=== PATIENT | female | born 2000 | race Hispanic/Latino ===

== ENCOUNTER 2023-04-25 11:35 | Inpatient (IN) | payer SELFPAY ==
[2023-04-25] VITALS (52 sets, daily range): BP systolic 109–148; BP diastolic 59–89; PULSE 81–112; RESP 14–19; TEMP 37.1–38.8; O2SAT 94–100; BMI 35.3
[2023-04-25] MEDS: Lactated Ringers 1,000 ML 50 ML IV (12:25)
[2023-04-25 12:41] LABS: Absolute Lymphocyte Count 1.25 X10^3/uL (0.83-4.51); Basophil# 0.03 X10^3/uL; Basophil% 0.2 % (0-1); Eosinophil# 0.02 X10^3/uL; Eosinophils% 0.1 % (0-5); Hematocrit 34.4 % (37-47); Hemoglobin 10.8 g/dL (12.0-15.0); Lymphocyte # 1.25 X10^3/ul (0.83-4.51); Lymphocyte % 6.5 % (19-41); Mean Corp Hgb Conc 31.4 g/dL (32-36); Mean Corpuscular Hgb 27.6 pg (27.0-32.0); Mean Platelet Vol. 10.4 fl (6.2-12.0); Monocyte# 0.73 X10^3/uL; Monocyte% 3.8 % (0-10); NRBC Flagged by Analyzer 0 % (0-5); Neutrophil # 17.01 X10^3/uL (2.7-7.7); Neutrophil % 88.6 % (47-70); Platelet Count 276 K/mm3 (150-450); RBC Distribution Width CV 16.6 % (11.6-14.6); RBC Distribution Width SD 53.1 fl (35.1-43.9); Red Blood Count 3.91 M/mm3 (4.2-5.4); White Blood Count 19.2 K/mm3 (4.4-11.0)
[2023-04-25] MEDS: LACTATED RINGERS 500 ML 999 ML IV ×2 (13:00→20:26)
[2023-04-25 13:39] LABS: Syphilis Antibodies Non-reactive
[2023-04-25] MEDS: Penicillin G Pot 5,000,000 UNITS in 0.9% Normal Saline (100mL MB+) 100 ML 150 UNITS IV (13:57)
[2023-04-25] MEDS: fentaNYL-bupivacaine (epidural) 100 ML BAG EPIDURAL ×2 (14:09→18:27)
--- NOTE | 2023-04-25 15:18 | PCM.HP.OB ---
Documented by User: Benita Watkins CNM 05/23/23 16:55 HPI - General General Date of Admission: 04/25/23 HPI Narrative VENUS CARLIN, is a 22 F who presents [facility] Home Medications vits,calcium no.78-iron fumarate-folic acid 29 mg-1 mg tablet (Prenatabs FA) 1 tab PO DAILY 04/25/23 [History Last Taken 04/24/23] acetaminophen 500 mg tablet 1,000 mg (2 x 500 mg) PO Q6H 14 days #112 tabs 04/28/23 [Rx Last Taken Unknown] ferrous sulfate 325 mg (65 mg iron) tablet 325 mg PO 1200,1700 30 days #60 tabs 04/28/23 [Rx Last Taken Unknown] ibuprofen 600 mg tablet 600 mg PO Q6H 14 days #56 tabs 04/28/23 [Rx Last Taken Unknown] sennosides 8.6 mg-docusate sodium 50 mg tablet (Stool Softener-Stimulant Laxative) 1 - 2 tab PO DAILY #0 tabs 04/28/23 [Rx Last Taken Unknown] simethicone 80 mg chewable tablet 80 mg PO PCHS PRN Indigestion/stomach pain 7 days #14 tabs 04/28/23 [Rx Last Taken Unknown] Allergy/AdvReac Type Severity Reaction Status Date / Time No Known Allergies Allergy Verified 04/25/23 12:50 Surgical History (Updated 04/25/23 @ 12:57 by Carolyn Hazel) H/O wisdom tooth extraction Social History Smoking Status: Never smoker History Elective abortions Hx Para 0 Spontaneous abortions Hx # Term Pregnancies Ectopic pregnancies Hx # Pregnancies Multiple births # of living children Vital Signs Vital Signs Vital Signs: 04/25/23 11:49 04/25/23 11:49 04/25/23 11:50 Temperature Temperature Source Pulse Rate 81 89 Blood Pressure 134/80 H BP Systolic 134 BP Diastolic 80 Pulse Ox 04/25/23 11:50 04/25/23 11:49 04/25/23 13:03 Temperature 99.3 F H Temperature Source Pulse Rate Blood Pressure 125/61 H BP Systolic 125 BP Diastolic 61 Pulse Ox 98 04/25/23 13:03 04/25/23 13:04 04/25/23 13:04 Temperature Temperature Source Pulse Rate 86 84 Blood Pressure BP Systolic BP Diastolic Pulse Ox 99 04/25/23 13:02 04/25/23 13:02 04/25/23 13:58 Temperature 99.1 F Temperature Source Temporal Pulse Rate 106 H Blood Pressure BP Systolic BP Diastolic Pulse Ox 04/25/23 13:58 04/25/23 14:00 04/25/23 14:00 Temperature Temperature Source Pulse Rate 112 H Blood Pressure 148/89 H BP Systolic 148 BP Diastolic 89 Pulse Ox 99 04/25/23 14:03 04/25/23 14:03 04/25/23 14:05 Temperature Temperature Source Pulse Rate 102 H Blood Pressure 138/82 H BP Systolic 138 BP Diastolic 82 Pulse Ox 99 04/25/23 14:05 04/25/23 14:08 04/25/23 14:08 Temperature Temperature Source Pulse Rate 102 H 105 H Blood Pressure BP Systolic BP Diastolic Pulse Ox 99 04/25/23 14:10 04/25/23 14:10 04/25/23 14:13 Temperature Temperature Source Pulse Rate 105 H 110 H Blood Pressure 126/68 H BP Systolic 126 BP Diastolic 68 Pulse Ox 04/25/23 14:13 04/25/23 14:15 04/25/23 14:15 Temperature Temperature Source Pulse Rate 105 H Blood Pressure 128/74 H BP Systolic 128 BP Diastolic 74 Pulse Ox 98 04/25/23 14:18 04/25/23 14:18 04/25/23 14:21 Temperature Temperature Source Pulse Rate 102 H Blood Pressure 136/82 H BP Systolic 136 BP Diastolic 82 Pulse Ox 99 04/25/23 14:21 04/25/23 14:23 04/25/23 14:23 Temperature Temperature Source Pulse Rate 100 101 H Blood Pressure BP Systolic BP Diastolic Pulse Ox 99 04/25/23 14:26 04/25/23 14:26 04/25/23 14:28 Temperature Temperature Source Pulse Rate 94 95 Blood Pressure 139/85 H BP Systolic 139 BP Diastolic 85 Pulse Ox 04/25/23 14:28 04/25/23 14:30 04/25/23 14:30 Temperature Temperature Source Pulse Rate 96 Blood Pressure 133/80 H BP Systolic 133 BP Diastolic 80 Pulse Ox 98 04/25/23 14:33 04/25/23 14:33 04/25/23 14:35 Temperature Temperature Source Pulse Rate 99 Blood Pressure 137/77 H BP Systolic 137 BP Diastolic 77 Pulse Ox 97 04/25/23 14:35 04/25/23 14:38 04/25/23 14:38 Temperature Temperature Source Pulse Rate 100 99 Blood Pressure BP Systolic BP Diastolic Pulse Ox 98 04/25/23 14:40 04/25/23 14:40 04/25/23 14:43 Temperature Temperature Source Pulse Rate 112 H 99 Blood Pressure 137/78 H BP Systolic 137 BP Diastolic 78 Pulse Ox 04/25/23 14:43 04/25/23 14:46 04/25/23 14:46 Temperature Temperature Source Pulse Rate 96 Blood Pressure 136/83 H BP Systolic 136 BP Diastolic 83 Pulse Ox 99 04/25/23 14:48 04/25/23 14:48 04/25/23 14:51 Temperature Temperature Source Pulse Rate 100 Blood Pressure 132/77 H BP Systolic 132 BP Diastolic 77 Pulse Ox 99 04/25/23 14:51 04/25/23 14:53 04/25/23 14:53 Temperature Temperature Source Pulse Rate 95 101 H Blood Pressure BP Systolic BP Diastolic Pulse Ox 98 04/25/23 14:56 04/25/23 14:56 04/25/23 14:58 Temperature Temperature Source Pulse Rate 102 H 99 Blood Pressure 139/80 H BP Systolic 139 BP Diastolic 80 Pulse Ox 04/25/23 14:58 04/25/23 15:01 04/25/23 15:01 Temperature Temperature Source Pulse Rate 99 Blood Pressure 133/77 H BP Systolic 133 BP Diastolic 77 Pulse Ox 99 04/25/23 15:03 04/25/23 15:03 Temperature Temperature Source Pulse Rate 99 Blood Pressure BP Systolic BP Diastolic Pulse Ox 98 Weight Weight: 169 lb Body Mass Index (BMI) 35.3 Labs Labs Labs: Blood Type O POSITIVE Antibody Screen NEGATIVE Hct 27.1 % (37-47) L Hgb 8.5 g/dL (12.0-15.0) L Syphilis Total Ab Non-reactive Assessment & Plan (1) 39 weeks gestation of : COMMENT: @ 39&2 Documented by User: Dr. Mel Guerra MD 04/27/23 17:40 HPI - General General Date of Admission: 04/25/23 HPI Narrative VENUS CARLIN, is a 22 F who presents with ctxs. Maternal Data Information Final CRAIG: 04/30/23 Gestational age: 39&2 PFSH PFSH Home Medications vits,calcium no.78-iron fumarate-folic acid 29 mg-1 mg tablet (Prenatabs FA) 1 tab PO DAILY 04/25/23 [History Last Taken 04/24/23] acetaminophen 500 mg tablet 1,000 mg (2 x 500 mg) PO Q6H 14 days #112 tabs 04/28/23 [Rx Last Taken Unknown] ferrous sulfate 325 mg (65 mg iron) tablet 325 mg PO 1200,1700 30 days #60 tabs 04/28/23 [Rx Last Taken Unknown] ibuprofen 600 mg tablet 600 mg PO Q6H 14 days #56 tabs 04/28/23 [Rx Last Taken Unknown] sennosides 8.6 mg-docusate sodium 50 mg tablet (Stool Softener-Stimulant Laxative) 1 - 2 tab PO DAILY #0 tabs 04/28/23 [Rx Last Taken Unknown] simethicone 80 mg chewable tablet 80 mg PO PCHS PRN Indigestion/stomach pain 7 days #14 tabs 04/28/23 [Rx Last Taken Unknown] Allergy/AdvReac Type Severity Reaction Status Date / Time No Known Allergies Allergy Verified 04/25/23 12:50 Surgical History (Updated 04/25/23 @ 12:57 by Carolyn Hazel) H/O wisdom tooth extraction Social History Smoking Status: Never smoker History Elective abortions Hx Para 0 Spontaneous abortions Hx # Term Pregnancies Ectopic pregnancies Hx # Pregnancies Multiple births # of living children Physical Exam Const alert and oriented x3 Labs Labs Labs: Blood Type O POSITIVE Antibody Screen NEGATIVE Hct 27.1 % (37-47) L Hgb 8.5 g/dL (12.0-15.0) L Syphilis Total Ab Non-reactive see [facility] H&P Assessment & Plan (1) 39 weeks gestation of : COMMENT: @ 39&2 PLAN: Plan Admit ot L&D Routine care
--- NOTE | 2023-04-25 17:13 | NURSING ---
Pt. plans to breastfeed infant after delivery. IBCLC gave labor RN Alexander Mauritian resources on Hunger Cues, Latch/Positioning, Signs of a Good Feeding, and nauruan Feeding Log for patient to review before delivery.
[2023-04-25] MEDS: Lactated Ringers 1,000 ML 200 ML IV (17:30)
[2023-04-25] MEDS: Penicillin G 3,000,000 Units 50 ML 100 UNITS IV (18:25)
[2023-04-25] MEDS: Acetaminophen 500 MG Tablet PO (20:25)
[2023-04-25] MEDS: Ampicillin 2 GM in 0.9% Normal Saline (100mL MB+) 100 ML IV (20:44)
[2023-04-25] MEDS: CHLORHEXIDINE GLUC 2% CLOTH 1 EACH TOWELETTE TOPICAL (20:50)
[2023-04-25] MEDS: Sodium Citrate/Citric Acid 30 ML UDC PO (21:01)
[2023-04-25] MEDS: Cefazolin 2 GM in 0.9% Normal Saline (100mL Bag) 100 ML IV (21:11)
--- NOTE | 2023-04-25 22:10 | EX.PCM.OBRPT ---
Maternal Data Information Final CRAIG: 04/30/23 Gestational age: 39&2 Details Operative Information Date of Procedure: 04/25/23 Pre-Operative Diagnosis: (1) Non reassuring heart tracing Post-Operative Diagnosis: Same Indications for : Nonreassuring Status Indications Narrative: The patient was have recurrent late and some prolonged decelerations. Decision was made to proceed with a primary . The patient was taken to the operating room where epidural anesthesia was dosed & found to be adequate. She was prepped and draped in the dorsal supine position with a leftward tilt. A Pfannenstiel skin incision was made approximately 2 cm above the symphysis pubis and carried through to the underlying fascia with the scalpel. The fascia was incised incised in the midline and extended laterally with the Paris scissors. The rectus muscles were in the midline and the peritoneum was entered carefully and bluntly. The peritoneal incision was stretched and the bladder blade was inserted. Vesicouterine peritoneum was tented up, incised & then bladder flap created gently. The uterine incision was made in a low transverse fashion with the scalpel and extended superiorly and inferiorly with blunt dissection. The 's head was brought to the incision in the flexed position. It then disengaged and the infant was then rotated to breech. The was delivered carefully via typical breech maneuvers. The 3VC cord was clamped and cut. The infant was handed off to the waiting hat renovator. The placenta was delivered with fundal massage and gentle traction in the standard fashion. The uterus was exteriorized and cleared of clots and debris. The uterine incision was closed with #1 Vicryl suture in a running locked fashion. Monocryl suture was used in an imbricating fashion. 2 additional figure of eight sutures were placed on the right side of the uterine incision to obtain further hemostasis. The incision was examined and was found to be hemostatic. The uterus was returned to the abdominal cavity. After irrigating Aysha was placed over the uterine incision as some areas were denuded (but hemostatic). The rectus muscle was examined and any bleeding was Bovie cauterized. The fascia was closed with PDS suture in a running standard fashion. The subcutaneous tissue was examining and any bleeding was Bovie cauterized. The subcutaneous tissue was reapproximated with interrupted sutures. The skin was closed in a subcuticular fashion by the SUMMER CAMP COUNSELOR while I was present in the labor & delivery unit. The remainder of the procedure was performed by me with assistance. All sponge, lap, and needle counts were correct. The patient was taken to her room for recovery in a stable condition. Classification: ARIANNA Procedure Type: low transverse plumbing inspector #1: Adonis Feng Type of Anesthesia: Epidural Antibiotic Given: Ancef 2 grams IV x1 and Zithromax 500 mg/5 mL X1 Drain: Chung to straight drain Estimated Blood Loss: 700ml Fluids Replaced: 1500ml Procedure Start Time: 21:29 Procedure Stop Time: 22:14 Findings Description of Procedure: Normal maternal uterus and adnexa Presentation: Positive for Vertex (then disengaged and delivered breech) Amniotic Membrane Rupture Type: Artificial Amniotic Fluid Description: Moderate meconium (at time of delivery) Placental Delivery Description: Expressed Placenta Disposition: [facility] Specimen(s) Sent to Pathology: none Cord Vessel Description: 3 Vessels Cord Entanglement: None A Gender: Female (Whitney) (1 minute): 7 (5 minute): 9 Delayed Cord Clamping: No Complications Complications: None
[2023-04-25] MEDS: Azithromycin 500 MG in Dextrose 5%-Water (250mL Bag) 250 ML 250 MG IV (22:15)
[2023-04-25] MEDS: Oxytocin 15 Units/NS 250ml 15 UNITS/250 ML IV.SOLN 83 UNITS IV (22:35)
[2023-04-26] VITALS (21 sets, daily range): BP systolic 96–130; BP diastolic 58–79; PULSE 93–108; RESP 15–126; TEMP 36.3–36.9; O2SAT 94–99
[2023-04-26] MEDS: Ketorolac 30 MG/ML Syringe IV ×4 (00:37→18:22)
[2023-04-26] MEDS: Lactated Ringers 1,000 ML 100 ML IV (01:36)
[2023-04-26] MEDS: Acetaminophen 500 MG Tablet 1000 MG PO ×4 (02:31→21:19)
--- NOTE | 2023-04-26 02:46 | NURSING ---
epidural catheter removed by this rn, blue tip intact
[2023-04-26 06:44] LABS: Hematocrit 27.1 % (37-47); Hemoglobin 8.5 g/dL (12.0-15.0); Mean Corp Hgb Conc 31.4 g/dL (32-36); Mean Corpuscular Hgb 27.6 pg (27.0-32.0); Platelet Count 215 K/mm3 (150-450); RBC Distribution Width CV 16.9 % (11.6-14.6); RBC Distribution Width SD 53.4 fl (35.1-43.9); Red Blood Count 3.08 M/mm3 (4.2-5.4); White Blood Count 20.9 K/mm3 (4.4-11.0)
--- NOTE | 2023-04-26 08:16 | PCM.PN.OB ---
Subjective Subjective Patient seen at bedside. FOB hourly sign language interpreter for visit. Patient has not been out of bed and still has carr catheter. Discussed ambulation today. Pain is controlled at this time. Denies headache, SOB, or CP. with support. Anticipate discharge home tomorrow. Objective Data Objective Data Vital Signs: Vital Signs Temp Pulse Resp BP Pulse Ox O2 Del Method 97.4 F L 93 126 H 115/72 95 Room Air 04/26/23 08:06 04/26/23 08:06 04/26/23 08:06 04/26/23 08:06 04/26/23 08:06 04/26/23 08:06 Oxygen Delivery Method Room Air Weight: 169 lb Body Mass Index (BMI) 35.3 Intake & Output: Intake and Output for Last 24 Hours 04/24/23 04/25/23 04/26/23 23:59 23:59 23:59 Intake Total 4085.00 / 4085.00 505 / 505 Output Total 900 / 900 800 / 800 Balance 3185.00 / 3185.00 -295 / -295 Lab / Micro Data 04/26/23 06:23 Labs: Laboratory Results - last 24 hr 04/25/23 12:25: WBC 19.2 H, RBC 3.91 L, Hgb 10.8 L, Hct 34.4 L, MCV 88.0, MCH 27.6, MCHC 31.4 L, RDW Std Deviation 53.1 H, RDW Coeff of Loren 16.6 H, Plt Count 276, MPV 10.4, Immature Gran % (Auto) 0.800, Neut % (Auto) 88.6 H, Lymph % (Auto) 6.5 L, [place] % (Auto) 3.8, Eos % (Auto) 0.1, Baso % (Auto) 0.2, Absolute Neuts (auto) 17.0 H, Absolute Lymphs (auto) 1.25, Nucleated RBC % 0, Syphilis Total Ab Non-reactive, Blood Type O POSITIVE, Antibody Screen NEGATIVE 04/26/23 06:23: WBC 20.9 H, RBC 3.08 L, Hgb 8.5 L, Hct 27.1 L, MCV 88.0, MCH 27.6, MCHC 31.4 L, RDW Std Deviation 53.4 H, RDW Coeff of Loren 16.9 H, Plt Count 215, MPV 10.0 ROS Eyes Eyes: Denies blurry vision, change in vision or spots in vision ENT HEENT: Denies dizziness or headache(s) Cardiovascular Cardiovascular: Denies abdominal pain, chest pain or dyspnea Respiratory/Chest Respiratory/Chest: Denies cough, dyspnea, shortness of breath at rest or shortness of breath with exertion Gastrointestinal Gastrointestinal: Denies abdominal pain, diarrhea or vomiting Genitourinary Genitourinary: Denies change in urinary stream, difficulty urinating or dysuria Musculoskeletal Musculoskeletal: Reports none Integumentary Integumentary: Denies rash Neurologic Neurologic: Denies dizziness, headache(s), memory loss or weakness Physical Exam Narrative Dressing is dry and intact Const alert and no apparent distress General Appearance: cooperative and comfortable Exam Limitations: no limitations HEENT normocephalic Eyes General Eye: normal appearance of both eyes Neck full ROM General: normal visual inspection Chest Chest: symmetrical chest wall rise Resp normal respiratory effort and normal air movement Effort and Inspection: symmetric chest movement Auscultation: clear to auscultation bilaterally Cardio regular rate and regular rhythm GI normal to inspection, nondistended, normoactive bowel sounds Back/Spine normal ROM Extremity full ROM and no calf tenderness General Extremity: normal exam except as noted Skin no rashes or lesions noted Neuro CN's II-XII intact bilaterally Psych mental status grossly normal Assessment & Plan (1) Single delivery by section: (2) Language barrier: (3) Care and examination of lactating mother: (4) Anemia due to blood loss: PLAN: Plan POD 1 Primary C/S Pain control HGB 8.5 down from 10.8- Start oral iron BID support Ambulate today
[2023-04-26] MEDS: Senna/Docusate Sodium 1 Tablet PO (10:30)
[2023-04-26] MEDS: Enoxaparin 40 MG/0.4 ML Syringe SC (10:31)
[2023-04-26] MEDS: Influenza Virus Vac Quad 23-24 60 MCG/0.5 ML SYRINGE IM (10:31)
[2023-04-26] MEDS: 0.9% Saline Lock 10 ML Syringe IV (12:43)
[2023-04-26] MEDS: Ferrous Sulfate 325 MG Tablet PO ×2 (12:48→17:50)
[2023-04-27] MEDS: Ibuprofen 600 MG Tablet PO ×4 (00:27→17:51)
[2023-04-27 01:50] VITALS: BP 127/71; PULSE 91; RESP 16; TEMP 36.6; O2SAT 97
[2023-04-27] MEDS: Acetaminophen 500 MG Tablet 1000 MG PO ×4 (01:54→21:05)
[2023-04-27 08:56] VITALS: BP 112/79; PULSE 85; RESP 16; TEMP 36.6; O2SAT 96
--- NOTE | 2023-04-27 09:30 | NURSING ---
Will [id number]
[2023-04-27] MEDS: Senna/Docusate Sodium 1 Tablet PO (10:24)
[2023-04-27] MEDS: Enoxaparin 40 MG/0.4 ML Syringe SC (10:24)
[2023-04-27] MEDS: Ferrous Sulfate 325 MG Tablet PO ×2 (12:23→17:52)
[2023-04-27 15:20] VITALS: BP 122/81; PULSE 92; RESP 16; TEMP 36.7; O2SAT 99
--- NOTE | 2023-04-27 17:36 | PCM.PN.OB ---
Subjective Subjective Denies complaints Objective Data Objective Data Vital Signs: Vital Signs Temp Pulse Resp BP Pulse Ox O2 Del Method 98.0 F 92 16 122/81 H 99 Room Air 04/27/23 15:20 04/27/23 15:20 04/27/23 15:20 04/27/23 15:20 04/27/23 15:20 04/27/23 15:20 Oxygen Delivery Method Room Air Weight: 169 lb Body Mass Index (BMI) 35.3 Intake & Output: Intake and Output for Last 24 Hours 04/25/23 04/26/23 04/27/23 23:59 23:59 23:59 Intake Total 4085.00 / 4085.00 1245 / 1245 Output Total 900 / 900 1900 / 1900 Balance 3185.00 / 3185.00 -655 / -655 Lab / Micro Data 04/26/23 06:23 Physical Exam Const alert, oriented x3 and no apparent distress HEENT normocephalic GI soft to palpation, non-tender and non-distended GI Narrative: fundus firm, mid & below umbilicus Incision - bandage c/d/i Extremity normal to inspection and no calf tenderness Assessment & Plan (1) Care and examination of lactating mother: (2) Anemia due to blood loss: (3) Single delivery by section: PLAN: Plan Routine PP care Plan for discharge tomorrow as working on feeding
[2023-04-27 20:40] VITALS: BP 130/75; PULSE 91; RESP 17; TEMP 36.5; O2SAT 98
[2023-04-28] MEDS: Ibuprofen 600 MG Tablet PO ×3 (00:39→12:20)
[2023-04-28 01:12] VITALS: BP 108/59; PULSE 80; RESP 17; TEMP 36.5; O2SAT 100
[2023-04-28] MEDS: Acetaminophen 500 MG Tablet 1000 MG PO ×2 (02:20→08:47)
[2023-04-28 08:00] VITALS: BP 117/69; PULSE 82; RESP 16; TEMP 36.7
[2023-04-28] MEDS: Etonogestrel 68 MG IMPLANT SC (08:15)
--- NOTE | 2023-04-28 08:21 | PCM.PROGNOTE ---
Subjective Subjective patient seen at bedside, doing well. Patient reports good pain control. lochia mild. Objective Data Objective Data Vital Signs: Vital Signs Temp Pulse Resp BP Pulse Ox O2 Del Method 97.7 F L 80 17 108/59 L 100 Room Air 04/28/23 01:12 04/28/23 01:12 04/28/23 01:12 04/28/23 01:12 04/28/23 01:12 04/28/23 01:12 Oxygen Delivery Method Room Air Weight: 76.657 kg Body Mass Index (BMI) 35.3 Intake & Output: Intake and Output for Last 24 Hours 04/26/23 04/27/23 04/28/23 23:59 23:59 23:59 Intake Total 1245 / 1245 Output Total 1900 / 1900 Balance -655 / -655 Lab / Micro Data 04/26/23 06:23 Physical Exam Const alert and oriented x3 General Appearance: cooperative HEENT normocephalic Neck General: normal visual inspection GI soft to palpation and non-distended GI Narrative: Fundus firm Extremity normal to inspection and no calf tenderness Skin no rashes or lesions noted Neuro oriented x3 and CN's II-XII intact bilaterally Psych mental status grossly normal Assessment & Plan Assessment/Plan (1) Anemia due to blood loss: (2) Care and examination of lactating mother: (3) Single delivery by section: (4) Language barrier: PLAN: Plan POD#3 , Doing well Routine care pain mgmt monitor VS ambulation nexplanon insertion today dc home
--- NOTE | 2023-04-28 08:22 | PCM.OPRPT ---
Report of Operation Date of Procedure: 04/28/23 Pre-Operative Diagnosis: contraceptive mgmt Post-Operative Diagnosis: same Surgery/Procedure Performed:: nexplanon insertion Description of Surgical Findings:: [employer] membership advisors on iPad used for consent Surgeon: Nusrat Burr Type of Anesthesia: Local Special Medications: 1% lidocaine Specimen's removed: none Description of Procedure: Consent was obtained. Patient left arm placed in a neutral position flexed at 90 degrees. Area cleansed with chlorhexidine. 5cc of 1% lidocaine injected. Nexplanon placed without difficulty. Patient was shown where the implant was placed. Steri-Strips were applied. gauze and pressure dressing were applied. Grafts/Implants Used: nexplanon Complications none
--- NOTE | 2023-04-28 08:25 | DS.PCM_ITS ---
Discharge Summary Date of Admission: 04/25/23 Date of Discharge: 04/28/23 Summary: Patient was admitted to [facility] on 04/25/2023 in labor. Patient had nonreassuring status with category 2 heart rate tracing remote from delivery underwent a primary section performed by Dr. Mel Guerra. She had an uncomplicated postoperative course and was discharged home on postoperative day #3 in stable condition. Patient had a Nexplanon implant placed prior to DC home for contraceptive management. Meaningful Use Info Meaningful Use Diagnoses (Choose all that apply): None applicable Discharge Plan Admission Admit Date/Time: 04/25/23 11:35 Attending Provider: Mel Guerra Primary Care Provider: Care Physician,Elle Primary Discharge Orders/Prescriptions Prescriptions: New sennosides-docusate sodium [Stool Softener-Stimulant Laxat] 8.6-50 mg Tablet 1 - 2 tab PO DAILY Qty: 0 0RF acetaminophen 500 mg Tablet 1,000 mg PO Q6H 14 Days Qty: 112 0RF ferrous sulfate 325 mg (65 mg iron) Tablet 325 mg PO 1200,1700 30 Days Qty: 60 0RF ibuprofen 600 mg Tablet 600 mg PO Q6H 14 Days Qty: 56 0RF simethicone 80 mg Tablet,Chewable 80 mg PO PCHS PRN (Reason: Indigestion/stomach pain) 7 Days Qty: 14 0RF Continued Prenatabs FA 29-1 mg tablet 1 tab PO DAILY Referrals / Follow Up: Care Physician,No Primary [Primary Care Provider] - Disposition Disposition (needs filled in before D/C Order can be placed): Home, Self Care
--- NOTE | 2023-04-28 08:31 | DCINST_ITS ---
Discharge Instructions Diet Discharge Diet: No restrictions Activity May resume sexual activity in: 6-8 weeks Lifting Restrictions: 25 Dressing / Incision Call your doctor if your incision/area has: Continuous Slow Oozing, Sudden Increased Bleeding, Increased Pain/ Swelling, Increased Redness, Foul Smelling Discharge and Swelling at the incision site Call your doctor if you observe: Fever of 101 or Higher, Inability to urinate, Using more than 1 pad per hour and Uncontrolled pain Additional Dressing/Incision Instructions:: remove dressing at 7 days post op- if it becomes saturated prior to that time you may remove it. Let soap and water run over incision sites and dab dry. keep incision clean and dry. Follow Up Care Please Follow Up With: Nusrat Burr MD When: 1-2 weeks post of incision check and again at 6 weeks post . [phone] Test Results: Test results from this visit will be discussed in further detail at your follow- up appointment, if applicable. Discharge Plan Admission Admit Date/Time: 04/25/23 11:35 Attending Provider: Mel Guerra Primary Care Provider: Care Physician,Elle Primary Discharge Orders/Prescriptions Prescriptions: New sennosides-docusate sodium [Stool Softener-Stimulant Laxat] 8.6-50 mg Tablet 1 - 2 tab PO DAILY Qty: 0 0RF acetaminophen 500 mg Tablet 1,000 mg PO Q6H 14 Days Qty: 112 0RF ferrous sulfate 325 mg (65 mg iron) Tablet 325 mg PO 1200,1700 30 Days Qty: 60 0RF ibuprofen 600 mg Tablet 600 mg PO Q6H 14 Days Qty: 56 0RF simethicone 80 mg Tablet,Chewable 80 mg PO PCHS PRN (Reason: Indigestion/stomach pain) 7 Days Qty: 14 0RF Continued Prenatabs FA 29-1 mg tablet 1 tab PO DAILY Referrals / Follow Up: Care Physician,No Primary [Primary Care Provider] - Disposition Disposition (needs filled in before D/C Order can be placed): Home, Self Care
[2023-04-28] MEDS: Senna/Docusate Sodium 1 Tablet PO (08:48)
[2023-04-28] MEDS: Enoxaparin 40 MG/0.4 ML Syringe SC (08:48)
--- NOTE | 2023-04-28 11:20 | CASEMGMT ---
Social Work Assessment Labor and Delivery Unit Patient Address: [address] [place] [id number] Phone number: [phone] Date of Referral: 04/27/23 Time of Referral:? 1935 Referred By: Mel Guerra Date of Intervention: 04/28/23?? Time of Intervention:? 944 Reason for Referral:? resources Sw completed chart review and acknowledges social work consult due to need for resources. Sw presented to bedside and using ipad cotton sampler (Aleisha ID# [id number]) introduced self to mother of baby (NABILA- Hortencia) and explained reason for sw involvement. Sw completed psychosocial assessment and provided MOB information regarding resources that she is eligible for. History obtained from: medical records, MOB Household composition: MOB states that currently residing in the home is herself, FOB and now baby. Patient's parent/guardian status:? ?MOB states that she and FOB were introduced to each other by mutual friends and have been together for one year. MOB denies any concerns of domestic violence or intimate partner violence. Medical History: ?NABILA is 22 year old female who is 1, para 0-now 1 after labor and delivery of baby. MOB received routine care during with [facility]. MOB delivered baby on 04/25/23 via after non reassuring heart tones. Baby girl, named Whitney, was born weighing 6lb 9oz and her apgars were 7 and 9 at one and five minutes of life, respectfully. Baby will be followed by Dr. Nina for pediatrics. Educational Status:? MOB states that both parents completed high school. 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 Supplies:?? MOB states that they have obtained a car seat, clothes, diapers and wipes but did not get a crib yet. Sw asked MOB what baby will sleep in tonight, and MOB stated that they will be stopping on their way home from the hospital to get a crib. Sw informed MOB that if it is easier for parents they can also get a pack-n-play or bassinet, a safe sleep is also one of those options. MOB expressed understanding. Childcare/Caregiver(s):? MOB stated that she does not require assistance with childcare because she does not work and is able to be the primary caregiver to baby. MOB stated if she needs help she does have supports in place. Transportation:?? VI drives and has a reliable vehicle. MOB stated that when she has to go to appointments FOB takes her. Programs/Agencies Involved: ???MOB denies linkage to any community resources. Sw educated MOB on need for baby to get connected to insurance, as well as herself. Sw asked MOB if it was ok for sw to make referral to [employer] who would be able to assist MOB getting connected to insurance. MOB stated that was ok. Sw also provided MOB information on local resources that are applicable- WIC, [employer], counseling, food pantries, etc. Children Services/Legal Issues:??No history of involvement, no issues or concerns warranting referral to be made at this time. ? Behavioral Health Issues: ??Mental Health History:??MOB denies mental health history for herself and FOB. ? Substance Use History: MOB denies substance use prior to and during . ?? Family History:???MOB denies family history of addiction and significant mental health history. ?? Drug Screens: ??No urine screens observed in chart review. Family/Social Stressors:? MOB denies stressors at this time. Support Systems: MOB states that VI is her biggest support person, along with her friend Vani. Depression/Shaken Baby/Safe Sleeping:? Sw educated MOB on signs and symptoms of baby blues and depression and anxiety. Sw provided MOB with literature she can review discussing appropriate coping skills to utilize if she would struggle. MOB expressed understanding. Sw educated MOB on shaken baby prevention and ABCs of safe sleep. MOB expressed understanding. ASSESSMENT:? MOB and baby admitted following labor and delivery of . MOB Swedish speaking and is not connected to community resources, and does not have insurance. MOB receptive to sw involvement and support and was receptive to getting connected to the resources that sw provided her with. MOB states that they have all necessary baby items except for a sleep space for baby, which MOB states [facility] is getting after MOB and baby are discharged today. MOB with no mental health history, and states that she has supports in place to help her. PLAN:? MOB and baby to be discharged when medically ready. ?No other services requested or indicated. Kendall Martinez, MAINFRAME SOFTWARE DEVELOPER, ELECTRO PLATER
[2023-04-28] MEDS: Ferrous Sulfate 325 MG Tablet PO (12:20)
[2023-04-28 13:00] VITALS: BP 125/74; PULSE 76; RESP 16; TEMP 36.4
== END 2023-04-28 13:00 | disposition home or self-care (01) | DRG 787 ==
PROVIDERS: Admitting Provider Obstetrics & Gynecology; Referring Provider Advanced Practice Midwife; Visit Provider Obstetrics & Gynecology
DX: O76 Abnormality in fetal heart rate and rhythm complicating labor and delivery (principal); D62 Acute posthemorrhagic anemia; O90.81 Anemia of the puerperium; Z37.0 Single live birth; Z3A.39 39 weeks gestation of pregnancy; O77.0 Labor and delivery complicated by meconium in amniotic fluid
CPT/HCPCS: 59025; 59050; 85025; 85027; 86780; 86850; 86900; 86901; 94668; 99221; J7120; 90686; A4216; G0378; J2405